=== PATIENT | female | born 1980 | race African-American/Black ===

== ENCOUNTER 2018-08-16 22:24 | Emergency (ER) | payer MEDICAID ==
[~2018-08-16] VITALS: Ht 167.6 cm; Wt 96.2 kg
[2018-08-16 22:28] VITALS: BP 125/79
== END 2018-08-16 22:36 | disposition left against medical advice (07) ==
LOC: ER 22:24
DX: Z53.21 Procedure and treatment not carried out due to patient leaving prior to being seen by health care provider (principal)